=== PATIENT | female | born 1935 ===

== ENCOUNTER 2017-08-16 09:21 | Day surgery (SDC) | payer OTHER ==
[~2017-08-16] VITALS: Ht 154.9 cm; Wt 48.4 kg
[~2017-08-16 09:21] MED LIST: ACET325 PO; AMOCLA875 PO; ATOR20 PO; AZIT250 PO; BENTYL20 MG PO; BENZ100A PO; BIOTIN2500 MCG PO; BISA10S PR; CEFD300 PO; CENTRUM SILVER1 EAC2 PO; CHOL10002 PO; CIPR500 PO; CITA20 PO; CLON.5 PO; DICY20 PO; DICYCLOMINE; DOXE10 PO; ESOM20 PO; FAMO20 PO; GLUCOSAMINE/CONDROIT PO; GUAI600T33 PO; Iron Supplemen325 MG PO; LACT10SY PO; LEVFLO500 PO; LEVO750 PO; LEVSOD100 PO; LEVSOD50 PO; LEVSOD75 PO; LIPITOR; MELO7.5 PO; METR500 PO; ONDA4 PO; OXYACE5T PO; OXYC5 PO; PEPCID OTC; PRAM.5 PO; PRED20 PO; PROBIOTIC1 EAC1 PO; PROM25 PO; RXOXYACE PO; SYNTHROID; TRAM50 PO; VIT1CAPS12 PO
== END 2017-08-16 11:38 | disposition home or self-care (01) ==
LOC: ORSCSDS 09:21
PROVIDERS: Internal Medicine Gastroenterology
PROC: 0DJD8ZZ Inspection of Lower Intestinal Tract, Via Natural or Artificial Opening Endoscopic (ICD-10-PCS; principal; 2017-08-16 10:30)
DX: R10.32 Left lower quadrant pain (principal); K57.30 Diverticulosis of large intestine without perforation or abscess without bleeding; D64.9 Anemia, unspecified; Z87.891 Personal history of nicotine dependence; Z79.899 Other long term (current) drug therapy; E03.9 Hypothyroidism, unspecified; G47.30 Sleep apnea, unspecified
CPT/HCPCS: J7120

== ENCOUNTER → 2017-08-28 | Outpatient (CLI) | payer MEDICARE, OTHER ==
[2017-08-31 14:52] LABS: Stool Occult Bld Immuno 1 Negative (NEGATIVE); Stool Occult Bld Immuno 2 Negative (NEGATIVE)
== END ==
LOC: LAB 11:28 → LAB SHORT 11:28 → EDSTATUS 08-26 16:50 → LAB FUT 08-26 16:50
PROVIDERS: Internal Medicine Gastroenterology
DX: D64.9 Anemia, unspecified (principal)
CPT/HCPCS: 82274

== ENCOUNTER → 2017-09-15 | Outpatient (CLI) | payer MEDICARE, OTHER ==
[2017-09-15 16:24] LABS: Anion Gap 9 mmol/L (6-16); Blood Urea Nitrogen 22 mg/dL (8-24); Bun/Creatinine Ratio 22.2 (12.0-20.0); CO2, Blood 25 mmol/L (21-32); Calcium, Blood 9.2 mg/dL (8.5-10.1); Chloride, Blood 107 mmol/L (98-108); Creatinine, Blood 0.99 mg/dL (0.40-1.00); Glomerular Filtration Rate 57 (60-); Glucose, Blood 95 mg/dL (70-99); Phosphorus, Blood 3.8 mg/dL (2.5-4.9); Potassium, Blood 4.2 mmol/L (3.5-5.5); Sodium, Blood 141 mmol/L (136-145)
== END | disposition home or self-care (01) ==
LOC: OLS 15:00
PROVIDERS: Internal Medicine
DX: E55.9 Vitamin D deficiency, unspecified (principal); N28.9 Disorder of kidney and ureter, unspecified
CPT/HCPCS: 36415; 80069; 82570; 84156